=== PATIENT | male | born 2000 | race Caucasian/White ===

== ENCOUNTER 2024-07-17 11:15 | Emergency (ER) | payer MEDICAID ==
[~2024-07-17] VITALS: Ht 167.6 cm; Wt 81.0 kg
[2024-07-17 11:25] VITALS: O2SAT 98
[2024-07-17 15:29] VITALS: BP 132/70; PULSE 84; RESP 18; TEMP 36.83628; O2SAT 98
== END 2024-07-17 15:30 | disposition home or self-care (01) ==
LOC: ER 11:15
DX: S52.352A Displaced comminuted fracture of shaft of radius, left arm, initial encounter for closed fracture (principal); X58.XXXA Exposure to other specified factors, initial encounter; Y93.89 Activity, other specified; Y92.89 Other specified places as the place of occurrence of the external cause; Y99.8 Other external cause status
CPT/HCPCS: 29125; 73110; 99283